=== PATIENT | female | born 1945 | race Caucasian/White ===

== ENCOUNTER 2024-05-29 14:28 | Emergency (ER) | payer BC ==
[2024-05-29 14:35] VITALS: TEMP 99.1
[2024-05-29 15:06] LABS: Anisocytosis Slight; HCT 27.3 % (34.0-46.0); HGB 9.1 gm/dL (11.4-16.0); Hypochromasia Slight; MCH 39.7 pg (25.0-35.0); MCHC 33.2 g/dL (31.0-37.0); MCV 119.6 fL (80.0-100.0); Macrocytosis Marked; Mean Platelet Volume 7.9; Platelet Count 228 k/uL (150-450); Poikilocytosis Slight; RBC 2.28 m/uL (3.80-5.40); RDW 17.9 % (11.5-15.5)
[2024-05-29 15:12] LABS: WBC 1.4 k/uL (3.8-10.6)
[2024-05-29 15:24] LABS: ALT 15 U/L (4-34); AST 36 U/L (14-36); African American GFR (CKD) 46 (>60 ml/min/1.73 sqM); Albumin 3.4 g/dL (3.5-5.0); Alkaline Phosphatase 81 U/L (38-126); Anion Gap 7 mmol/L; Blood Urea Nitrogen 25 mg/dL (7-17); Calcium 8.7 mg/dL (8.4-10.2); Carbon Dioxide 24 mmol/L (22-30); Chloride 108 mmol/L (98-107); Glucose 109 mg/dL (74-99); Non-African American GFR(CKD) 40 (>60 ml/min/1.73 sqM); Sodium 139 mmol/L (137-145); Total Bilirubin 0.8 mg/dL (0.2-1.3); Total Protein 6.6 g/dL (6.3-8.2)
[2024-05-29 15:26] LABS: Potassium 4.6 mmol/L (3.5-5.1)
[2024-05-29 15:30] VITALS: RESP 18
--- NOTE | 2024-05-29 15:37 | ED ---
General Adult HPI - General Chief complaint: Dizziness Stated complaint: dizziness Source: patient, family, RN notes reviewed Mode of arrival: wheelchair Limitations: no limitations - History of Present Illness Initial comments: Patient is a 78-year-old female present to the emergency department with concerns with dizziness. Symptoms started close to 2 weeks ago. Symptoms are intermittent. Patient sometimes feels off balance. Patient does feel spinning sensations. Patient does have some nausea. Patient did have left ear discomfort at the onset of symptoms 2 weeks ago. Patient has been on a antibiotic for a week. This was from primary care physician. Patient did also have some wax removed from her left ear. No ear discomfort at this time. No confusion or speech problem. Patient is planning to see home care provider secondary to anemia which is new. Patient has also been losing weight over the last couple months. - Related Data Previous Rx's Medication Instructions Recorded Meclizine [Antivert] 25 mg PO TID PRN #12 tab 05/29/24 Metoclopramide HCl [Reglan] 10 mg PO Q6HR PRN #15 tablet 05/29/24 Allergies Allergy/AdvReac Type Severity Reaction Status Date / Time No Known Allergies Allergy Verified 05/29/24 14:34 Review of Systems ROS Statement: Those systems with pertinent positive or pertinent negative responses have been documented in the HPI. ROS Other: All systems not noted in ROS Statement are negative. Constitutional: Denies: fever Eyes: Denies: eye pain ENT: Denies: ear pain Respiratory: Denies: cough Cardiovascular: Denies: chest pain Endocrine: Reports: fatigue Gastrointestinal: Reports: nausea Neurological: Reports: as per HPI, vertigo Past Medical History Past Medical History: Hypertension History of Any Multi-Drug Resistant Organisms: None Reported Past Surgical History: No Surgical Hx Reported Past Psychological History: No Psychological Hx Reported Smoking Status: Never smoker Past Alcohol Use History: None Reported Past Drug Use History: None Reported General Exam Limitations: no limitations General appearance: alert, in no apparent distress Head exam: Present: atraumatic Eye exam: Present: normal appearance, PERRL, EOMI ENT exam: Present: TM's normal bilaterally, other (No tenderness over the temporal artery) Neck exam: Present: normal inspection Respiratory exam: Present: normal lung sounds bilaterally Cardiovascular Exam: Present: regular rate, normal rhythm GI/Abdominal exam: Present: soft. Absent: tenderness Extremities exam: Present: normal inspection Neurological exam: Present: alert, oriented X3, CN II-XII intact. Absent: motor sensory deficit Expanded Neurological exam: Present: protecting the airway Speech: Present: fluid speech Cranial nerves: EOM's Intact: Normal, Facial Sensation: Normal Cerebellar function: Finger to Nose: Normal Sensory exam: Upper Extremity Light Touch: Normal, Lower Extremity Light Touch: Normal Motor strength exam: RUE: 5, LUE: 5, RLE: 5, LLE: 5 Eye Response: (4) open spontaneously Motor Response: (6) obeys commands Verbal Response: (5) oriented Psychiatric exam: Present: normal affect, normal mood Skin exam: Present: normal color Course Vital Signs 05/29/24 05/29/24 05/29/24 14:31 15:27 16:59 Temperature 99.1 F Pulse Rate 86 60 76 Respiratory 20 18 18 Rate Blood Pressure 131/60 123/94 138/74 O2 Sat by Pulse 97 96 96 Oximetry EKG Findings - EKG Results: EKG: interpreted by ERMD, sinus rhythm, normal axis, normal QRS, normal ST/T Medical Decision Making - Medical Decision Making Was pt. sent in by a medical professional or institution (, PA, CRISIS INTERVENTION COUNSELOR, urgent care, hospital, or jail...) When possible be specific @ -No Did you speak to anyone other than the patient for history (EMS, parent, family, police, friend...)? What history was obtained from this source @ -Daughter is present helps provide history including patient's plan to see Dr. Nuñez with hematology Did you review nursing and triage notes (agree or disagree)? Why? @ -I reviewed and agree with nursing and triage notes Were old charts reviewed (outside hosp., previous admission, EMS record, old EKG, old radiological studies, urgent care reports/EKG's, jail records)? Report findings @ -Chart reviewed from primary care physician blood work as an outpatient Differential Diagnosis (chest pain, altered mental status, abdominal pain women, abdominal pain men, vaginal bleeding, weakness, fever, dyspnea, syncope, headache, dizziness, GI bleed, back pain, seizure, CVA, palpatations, mental health, musculoskeletal)? @ -Differential Dizziness: Benign paroxysmal positional Vertigo, Meniere's disease, otitis media, acoustic neuroma, vertebrobasilar insufficiency, cerebellar stroke, encephalitis, hypovolemic, arrhythmia, coronary artery syndrome, anemia, this is not meant to be an all-inclusive list EKG interpreted by me (3pts min.). @ -As above X-rays interpreted by me (1pt min.). @ -Chest x-ray shows nonspecific increased interstitial changes CT interpreted by me (1pt min.). @ -CT brain without acute intracranial abnormality U/S interpreted by me (1pt. min.). @ -None done What testing was considered but not performed or refused? (CT, X-rays, U/S, labs)? Why? @ -None What meds were considered but not given or refused? Why? @ -None Did you discuss the management of the patient with other professionals (professionals i.e. , PA, CRISIS INTERVENTION COUNSELOR, lab, RT, psych nurse, social director, traverse rod assembler, teacher, youth officer, rifle case repairer)? Give summary @ -No Was smoking cessation discussed for >3mins.? @ -No Was critical care preformed (if so, how long)? @ -No Were there social determinants of health that impacted care today? How? (Homelessness, low income, unemployed, alcoholism, drug addiction, transportation, low edu. Level, literacy, decrease access to med. care, [place] [facility], rehab)? @ -No Was there de-escalation of care discussed even if they declined (Discuss DNR or withdrawal of care, Hospice)? DNR status @ -No What co-morbidities impacted this encounter? (DM, HTN, Smoking, COPD, CAD, Cancer, CVA, ARF, Chemo, Hep., AIDS, mental health diagnosis, sleep apnea, morbid obesity)? @ -None Was patient admitted / discharged? Hospital course, mention meds given and route, prescriptions, significant lab abnormalities, going to OR and other pertinent info. @ -Patient presents with vertigo type symptoms. No abnormality on exam. CT scan unremarkable for acute findings. Patient symptom-free following medications. Patient does have worsening of weight and red cell counts. Patient does have an appointment already with hematology however they advised to have this done within the next several days. Patient and family are updated on results and need for close follow-up. Undiagnosed new problem with uncertain prognosis? @ -No Drug Therapy requiring intensive monitoring for toxicity (Heparin, Nitro, Insulin, Cardizem)? @ -No Were any procedures done? @ -No Diagnosis/symptom? @ -Vertigo Acute, or Chronic, or Acute on Chronic? @ -Acute Uncomplicated (without systemic symptoms) or Complicated (systemic symptoms)? @ -Complicated with anemia and leukopenia Side effects of treatment? @ -No Exacerbation, Progression, or Severe Exacerbation? @ -No Poses a threat to life or bodily function? How? (Chest pain, [place], [place], pneumonia, PE, COPD, DKA, ARF, appy, cholecystitis, CVA, Diverticulitis, Homicidal, Suicidal, threat to staff... and all critical care pts) @ -No - Lab Data Result diagrams: 05/29/24 14:48 05/29/24 14:48 Lab Results 05/29/24 05/29/24 Range/Units 14:48 14:48 WBC 1.4 L* (3.8-10.6) k/uL RBC 2.28 L (3.80-5.40) m/uL Hgb 9.1 L (11.4-16.0) gm/dL Hct 27.3 L (34.0-46.0) % MCV 119.6 H (80.0-100.0) fL MCH 39.7 H (25.0-35.0) pg MCHC 33.2 (31.0-37.0) g/dL RDW 17.9 H (11.5-15.5) % Plt Count 228 (150-450) k/uL MPV 7.9 Neutrophils % (Manual) 41 % Lymphocytes % (Manual) 49 % Monocytes % (Manual) 4 % Eosinophils % (Manual) 6 % Neutrophils # (Manual) 0.57 L (1.3-7.7) k/uL Lymphocytes # (Manual) 0.69 L (1.0-4.8) k/uL Monocytes # (Manual) 0.06 (0-1.0) k/uL Eosinophils # (Manual) 0.08 (0-0.7) k/uL Nucleated RBCs 0 (0-0) /100 WBC Manual Slide Review Performed Large Platelets Present Polychromasia Present Hypochromasia Slight Poikilocytosis Slight Anisocytosis Slight Macrocytosis Marked A Sodium 139 (137-145) mmol/L Potassium 4.6 (3.5-5.1) mmol/L Chloride 108 H (98-107) mmol/L Carbon Dioxide 24 (22-30) mmol/L Anion Gap 7 mmol/L BUN 25 H (7-17) mg/dL Creatinine 1.30 H (0.52-1.04) mg/dL Est GFR (CKD-EPI)AfAm 46 (>60 ml/min/1.73 sqM) Est GFR (CKD-EPI)NonAf 40 (>60 ml/min/1.73 sqM) Glucose 109 H (74-99) mg/dL Calcium 8.7 (8.4-10.2) mg/dL Total Bilirubin 0.8 (0.2-1.3) mg/dL AST 36 (14-36) U/L ALT 15 (4-34) U/L Alkaline Phosphatase 81 (38-126) U/L Total Protein 6.6 (6.3-8.2) g/dL Albumin 3.4 L (3.5-5.0) g/dL Disposition Clinical Impression: Vertigo Disposition: HOME SELF-CARE Condition: Stable Instructions (If sedation given, give patient instructions): Dizziness (ED) Additional Instructions: Please do follow-up with primary care physician and hematology/oncology in the next couple of days for recheck. Cail-ndt-uixrlyr Antivert as needed. Prescription has been sent to pharmacy. Return for fever, weakness, confusion, increased dizziness, worsening symptoms or any other concerns. Prescriptions: Meclizine [Antivert] 25 mg PO TID PRN #12 tab PRN Reason: dizziness Metoclopramide HCl [Reglan] 10 mg PO Q6HR PRN #15 tablet PRN Reason: Nausea Is patient prescribed a controlled substance at d/c from ED?: No Referrals: Lyndsey Glasgow MD [Primary Care Provider] - 1-2 days Vic Licona MD [STAFF PHYSICIAN] - 1-2 days Time of Disposition: 17:35
[2024-05-29] MEDS: MECLIZINE 12.5 MG TAB PO STA (15:51)
[2024-05-29] MEDS: METOCLOPRAMIDE 5 MG/ML 2 ML VIAL IVP STA (15:52)
--- NOTE | 2024-05-29 16:47 | XR ---
EXAMINATION TYPE: XR chest 2V DATE OF EXAM: 05/29/2024 4:38 PM COMPARISON: None CLINICAL INDICATION: Female, 78 years old with history of vertigo, wt loss; H TECHNIQUE: XR chest 2V Frontal and lateral views of the chest. FINDINGS: Lungs/Pleura: Prominent interstitial lung markings are seen scattered throughout the lungs with elyssa ening of the diaphragm and increased lucency of the lung apices. No evidence of focal consolidation, pneumothorax or pleural effusion. Pulmonary vascularity: Pulmonary vascular congestion. Heart/mediastinum: Cardiomediastinal silhouette is enlarged. Musculoskeletal: No acute osseous pathology. IMPRESSION: Cardiomegaly and mild pulmonary vascular congestion. Correlate with BNP for congestive heart failure. [facility], , 05/29/2024 4:44 PM
[2024-05-29 16:48] LABS: Eosinophils # (M) 0.08 k/uL (0-0.7); Lymphocytes # (M) 0.69 k/uL (1.0-4.8); Monocytes # (M) 0.06 k/uL (0-1.0); Neutrophils # (M) 0.57 k/uL (1.3-7.7); Neutrophils % (M) 41 %; Nucleated Red Blood Cells 0 /100 WBC (0-0); Total Cells Counted 100
[2024-05-29 16:49] LABS: Large Platelets Present; Polychromasia Present
[2024-05-29 17:01] VITALS: BP 138/74; PULSE 76
--- NOTE | 2024-05-29 17:05 | CT ---
EXAMINATION TYPE: CT brain wo con DATE OF EXAM: 05/29/2024 4:49 PM COMPARISON: None. CLINICAL INDICATION: Female, 78 years old with history of vertigo, vertigo and dizziness episodes x2 weeks TECHNIQUE: Brain: Axial CT images of the brain were obtained with coronal and sagittal reformats created and rev iewed. Contrast used: None. Oral contrast used: None. CT DLP: 1139.6 mGycm, Automated exposure control for dose reduction was used. FINDINGS: Brain: Extra-axial spaces: No abnormal extra-axial fluid collections. Ventricular system: Within normal limits Cerebral parenchyma: Hypodense areas within the bilateral thalami and bilateral basal gangli. No acut e intraparenchymal hemorrhage or mass effect. The tay-white junction is well differentiated. Cerebellum: Unremarkable. Mass effect: No evidence of midline shift. Intracranial vasculature: Atherosclerotic calcifications of the intracranial vessels. Soft tissues: Normal. Calvarium/osseous structures: No depressed skull fracture. Paranasal sinuses and mastoid air cells: Mild scattered paranasal sinus disease. Visualized orbits: Orbital contents are intact. IMPRESSION: 1. No acute intracranial process. 2. Hypodense foci in the bilateral thalami and bilateral basal ganglia further evaluation MRI should be considered throughout lacunar infarcts. [facility], , 05/29/2024 5:02 PM
--- NOTE | 2024-05-29 17:14 | CT ---
EXAMINATION TYPE: CT angio head neck DATE OF EXAM: 05/29/2024 4:53 PM COMPARISON: CT head. CLINICAL INDICATION: Female, 78 years old with history of vertigo; PHH, vertigo and dizziness episode s x2 weeks TECHNIQUE: Axially acquired helical CT angiogram of the head and neck was obtained with contrast. Axi al images are supplemented with 3D reconstructions and MIP images which were post-processed at an in dependent workstation. NASCET criteria used. Contrast used:65ml mL of Isovue 370 with IV Contrast, Oral contrast used: None. CT DLP: 359.3 mGycm, Automated exposure control for dose reduction was used. FINDINGS: CTA HEAD: No evidence of acute intracranial hemorrhage, mass effect, or midline shift. The ventricles, sulci, a nd cisterns are unremarkable. r bilateral scrotal calcified lesion possibly calcified meningioma juvenal uring up to 8 x 3 mm. Vertebral arteries: The vertebral arteries are patent. Vertebral artery dominance: Codominant Basilar artery: The basilar artery is intact. The basilar artery bifurcation is normal. Internal Carotid arteries: The cervical, petrous, cavernous and supraclinoid segments are normal. RADHA: Patent with no evidence of aneurysm. ACOM: Present without evidence of aneurysm. MCA: Patent with no evidence of aneurysm. INSPECTOR TYPE: Patent with no evidence of aneurysm. PCOM: Hypoplastic bilaterally. Dural sinuses: Patent. CTA NECK: Right Carotid System: The common carotid artery and external carotid artery are patent. The carotid bifurcation demonstrate s no evidence of hemodynamically significant stenosis. The remaining portions of the internal carotid artery demonstrate normal size without significant narrowing. Left Carotid System: The common carotid artery and external carotid artery are patent. The carotid bifurcation demonstrate s no evidence of hemodynamically significant stenosis. The remaining portions of the internal carotid artery demonstrate normal size without significant narrowing. Vertebral arteries are patent without evidence hemodynamically significant stenosis. There is a three-vessel aortic arch. The origins of the great vessels are patent. No evidence of hemo dynamically significant stenosis. Upper thorax: centrilobular and paraseptal emphysema changes. IMPRESSION: No evidence of dissection of the cervical internal carotid arteries or vertebral arteries. No any evidence of significant stenosis at the carotid bifurcations. No evidence of intracranial high-grade stenosis or intracranial aneurysm. Ctwd-by-heiddgjg emphysema. [facility], , 05/29/2024 5:12 PM
== END 2024-05-29 18:27 | disposition home or self-care (01) ==
LOC: EC 14:28
DX: R42 Dizziness and giddiness (principal)
CPT/HCPCS: 36415; 93005; 80053; 85025; 71046; 70496; 70450; 70498; 99284; 96374; J2765; Q9967

== ENCOUNTER 2024-07-03 12:47 | Day surgery (SDC) | payer MEDICARE ==
[2024-06-29 15:25] VITALS: BMI 22.3
[2024-07-03 14:18] VITALS: TEMP 96.7
[2024-07-03] MEDS: IV FLUID CONTINUATION 1,000 ML IV ONE (14:30)
[2024-07-03] MEDS: LACTATED RINGERS 1,000 ML IV SCH (14:30)
[2024-07-03] MEDS ORDERED: fentaNYL (PF) 50 MCG/ML 2 ML AMP ONE (14:34)
--- NOTE | 2024-07-03 14:46 | P.PCN ---
Date of Procedure: 07/03/24 Procedure(s) Performed: Preoperative diagnosis: Demyelinating disease Post operative diagnoses: Debilitating disease Procedure= lumbar puncture Anesthesia= moderate sedation with fentanyl 100 g, local infiltration with lidocaine 1% 3 mL. Sedation start time :14:34 Sedation end time :14:43 Condition: stable Complication: none. Description of the procedure procedure risk and benefits discussed with the patient and family, consent signed. Patient and the procedure area placed in sitting position, back prepped with chlorhexidine 3 times been local infiltration of the skin and subcutaneous tissue with lidocaine 1% 3 mL for skin and subcu interstitial frustrations at L4 5 levels then 23-gauge Quincke-type needle advanced slowly at L4- 5 interlaminar space there was positive cerebrospinal fluid which was clear, no heme, no paresthesia ,total of 9 ML of clear cerebrospinal fluid collected in 4 different tubes 2-2-1/2 mL in each, then the needle removed and a Band-Aid applied and patient tolerated the procedure well without any complications.
[2024-07-03] MEDS: LACTATED RINGERS 1,000 ML IV ONE (14:55)
[2024-07-03 14:58] LABS: ALT 15 U/L (4-34); AST 25 U/L (14-36); Glucose 90 mg/dL (74-99)
[2024-07-03 15:18] LABS: Appearance,CSF Clear
[2024-07-03 15:20] LABS: CSF Tube Number 4; CSF Tube Volume 2.5
[2024-07-03 15:39] LABS: Glucose,CSF 49 mg/dL (40-70); Total Protein,CSF 43 mg/dL (12-60)
[2024-07-03 15:51] VITALS: BP 148/71; PULSE 67; RESP 18
[2024-07-03 16:42] LABS: Nucleated Cells, CSF 1 u/L (0-5); Red Blood Cell,CSF 4 u/L (0-10)
[2024-07-03 21:57] LABS: Anti-DNA, DS unit <1.0 IU/mL; Anti-Smith Ab Interp Negative (Negative); DNA Double-Stranded Negative (Negative)
[2024-07-03 23:20] LABS: Rheumatoid Factor, Qnt 28 IU/mL (0-15)
[2024-07-04 14:21] LABS: APTT 32 Sec(s) (<43); Dilute Russell Viper Venom 34 Sec(s) (<44)
[2024-07-06 09:50] LABS: VDRL, Qualitative CSF Nonreactive (Nonreactive)
== END 2024-07-03 15:56 | disposition home or self-care (01) ==
LOC: ORPAIN 12:47
PROVIDERS: ATTEND Specialist
DX: G37.9 Demyelinating disease of central nervous system, unspecified (principal)
CPT/HCPCS: 86592; 86235 ×3; 84157; 82945; 82040; 82042; 82784; 83916; 82947; 84436; 84443; 84450; 84460; 85730; 86431; 85613; 89050; 86618; 86038; 86039; 86225; 62270; J3010; 88108

== ENCOUNTER → 2024-07-09 | Outpatient (CLI) | payer MEDICARE ==
--- NOTE | 2024-07-09 14:33 | MR ---
EXAMINATION TYPE: MR brain wo/w con DATE OF EXAM: 07/09/2024 1:43 PM COMPARISON: 05/29/2024. 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 The patient was then given intravenous contrast and multi planar, T1 fat-saturation images wer e obtained. IV Contrast: 5 mL Gadobutrol FINDINGS: Mild cerebral atrophy with proportional dilation of ventricular system. Bilateral chronic injuries o f the frontal lobe schneider radiata with surrounding gliosis present. Diffusion-weighted imaging shows no evidence of restricted diffusion to suggest acute/subacute infarct. Intracranial arterial flow voi ds are maintained. Midline structures show no abnormality. Scattered foci of high T2 signal intensity are seen within the periventricular white matter. The susceptibility weighted images demonstrate mul tiple foci of susceptibility artifact suggestive of microhemorrhage. After administration of gadolini um, no abnormal enhancement is seen. The bone marrow signal is within normal limits. Paranasal sinuses and mastoid air cells: Bilateral maxillary sinus mucosal retention cysts measuring up to 8 mm on the right and 10 mm on the left. Visualized orbits: Orbital contents are intact. IMPRESSION: 1. No evidence of intracranial mass, acute/subacute infarct, or abnormal enhancement. 2. Nonspecific white matter changes, likely related to small vessel ischemic disease. 3. Remote injuries to the bilateral schneider radiata of the frontal lobe. [facility], , 07/09/2024 2:30 PM
== END | disposition home or self-care (01) ==
LOC: RADMRIMAIN 12:52
PROVIDERS: ATTEND Psychiatry & Neurology Neurology
DX: G61.9 Inflammatory polyneuropathy, unspecified (principal); M62.81 Muscle weakness (generalized); R90.82 White matter disease, unspecified; Z86.73 Personal history of transient ischemic attack (TIA), and cerebral infarction without residual deficits
CPT/HCPCS: 70553; A9585

== ENCOUNTER 2024-08-01 06:35 | Day surgery (SDC) | payer MEDICARE ==
[2024-07-31 10:20] VITALS: BMI 23.0
[~2024-08-01 06:35] MED LIST: LACTATED RINGERS 1,000 ML IV SCH
[2024-08-01 07:08] VITALS: RESP 16; TEMP 97.5
[2024-08-01] MEDS: IV FLUID CONTINUATION 1,000 ML IV ONE (07:20)
[2024-08-01] MEDS ORDERED: PROPOFOL 10 MG/ML 20 ML VIAL IV ONE (07:21)
[2024-08-01] MEDS ORDERED: LIDOCAINE 1% INJ 10MG/ML (20 ML MDV) ONE (07:21)
[2024-08-01 07:24] LABS: Glucose,Whole Blood 94 mg/dL (70-110)
--- NOTE | 2024-08-01 08:12 | P.PCN ---
Date of Procedure: 08/01/24 Procedure(s) Performed: Brief history: Patient is a pleasant 78-year-old white female scheduled for an elective upper endoscopy as well as colonoscopy as a part of evaluation of iron deficiency anemia Procedure performed: Esophagogastroduodenoscopy with biopsy Colonoscopy with snare polypectomy Preoperative diagnosis: Iron deficiency anemia Anesthesia: MAC Procedure: After informed consent was obtained from the patient was brought into the endoscopy unit and IV sedation was administered by anesthesia under continuous monitoring. Initially upper endoscopy was done. The Olympus GF 160 video endoscope was inserted inserted into the mouth and esophagus intubated without any difficulty and was gradually advanced into the stomach and duodenum and carefully examined. The bulb and second part of the duodenum appeared normal. The scope was then withdrawn into the stomach adequately insufflated with air and upon careful examination the antrum had mild gastritis and biopsies were done from this area. Mucosa of the luis m, cardia and fundus appeared normal. The scope was then withdrawn into the esophagus. Small hiatal hernia noted. The GE junction was located at 40 cm to the incisors. It appeared regular with no erythema erosions or ulcerations. Rest of the esophagus appeared normal. P atient tolerated the procedure well. At this time the patient continued to remain sedation. Initial digital rectal examination was normal. Olympus CF 160 video colonoscope was then inserted into the rectum and gradually advanced to the cecum without any difficulty. Careful examination was performed as the scope was gradually being withdrawn. The prep was excellent. The cecum, appeared normal. Descending colon there were 3 polyps measuring 5 mm and 1 cm in size removed by snare polypectomy. Rest of the ascending colon, transverse colon, descending colon, appeared normal. The sigmoid colon there were 2 large polyps measuring 5 cm and 4 cm in size which were thick pedunculated which were removed by piecemeal snare polypectomy and complete polypectomy was accomplished. Sigmoid colon and rectum appeared normal. Retroflexion was performed in the rectum and no lesions were noted. Patient tolerated the procedure well. Impression: 1. Upper endoscopy revealed small hiatal hernia and mild in the distal 2. Colonoscopy revealed: 5 mm, 1 cm x 2 ascending colon polyp status post polypectomy 3 cm and 4 cm thick pedunculated sigmoid colon polyps at 30 cm from the anal verge status post piecemeal snare polypectomy and almost complete polypectomy accomplished Recommendations: Findings of this examination were discussed with the patient as well as her family. She was advised to follow-up with the biopsy results. She will be seen in the office in 1 week. Based on the biopsy results we will plan on repeat colonoscopy in 3 months.
[2024-08-01 08:48] VITALS: BP 163/83; PULSE 78
== END 2024-08-01 09:02 | disposition home or self-care (01) ==
LOC: ORWHC2ENDO 06:35
PROVIDERS: ATTEND Internal Medicine Gastroenterology
DX: K29.50 Unspecified chronic gastritis without bleeding (principal); D12.2 Benign neoplasm of ascending colon; D12.5 Benign neoplasm of sigmoid colon; K44.9 Diaphragmatic hernia without obstruction or gangrene; D50.9 Iron deficiency anemia, unspecified; I10 Essential (primary) hypertension; Z79.899 Other long term (current) drug therapy
CPT/HCPCS: 88305; 45385; 43239; J2003; J2704

== ENCOUNTER → 2024-08-25 | Outpatient (CLI) | payer MEDICARE ==
--- NOTE | 2024-08-25 16:59 | MR ---
EXAMINATION TYPE: MR cspine/tspine wo/w con DATE OF EXAM: 08/25/2024 3:53 PM COMPARISON: 05/29/2024.. CLINICAL INDICATION: Female, 78 years old with history of G61.9 inflammatory poly neuropathy; PHH, we akness and pain TECHNIQUE: Multi planar, multi sequence imaging was performed utilizing: T1-weighted, T2-weighted, a nd turbo inversion recovery imaging of the cervical and thoracic spine. IV Contrast: 6ml mL Gadobutrol (None, if empty) FINDINGS: CERVICAL: Alignment: The cervical vertebral bodies have preserved heights. Alignment is within normal limits gi rodger patient positioning. Bones: Scattered Modic endplate changes with osteophytes and disc space narrowing. Multilevel degener ative disc disease is noted and most pronounced at the C5-C7 vertebral levels. No abnormal postcontra st enhancement. Cord: The spinal cord is unremarkable with regards to their signal intensity and morphology. No abnor mal postcontrast enhancement. Discs: Multilevel disc desiccation is present. C2-C3: No significant disc pathology. The spinal canal is patent. No neural foraminal stenosis. C3-C4: No significant disc pathology. The spinal canal is patent. Bilateral facet and uncovertebral joint arthropathy are present with moderate bilateral neural foraminal stenosis. C4-C5: No significant disc pathology. The spinal canal is patent. Bilateral facet and uncovertebral joint arthropathy are present with moderate left and mild to moderate right neural foraminal stenosis . C5-C6: A disc osteophyte complex is present with moderate spinal canal stenosis. Bilateral facet and uncovertebral joint arthropathy are present with severe bilateral neural foraminal stenosis. C6-C7: A disc osteophyte complex is present with moderate spinal canal stenosis. Bilateral facet and uncovertebral joint arthropathy are present with severe bilateral neural foraminal stenosis. C7-T1: No significant disc pathology. The spinal canal is patent. No neural foraminal stenosis. THORACIC: T9-T10 right central osteophyte which mildly narrows the ventral subarachnoid space. Series 02/29/2000 image 13. No evidence significant spinal canal or neural foraminal stenosis. Spinal cord is within normal limits there is increased kyphotic alignment. No abnormal postcontrast enhancement. Other: None. IMPRESSION: 1. No definitive evidence of disc herniation or significant spinal canal stenosis. No abnormal postc ontrast enhancement. 2. 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 3. Moderate scattered Disc degeneration with associated osteoarthritic changes. [facility], , 08/25/2024 4:57 PM
== END | disposition home or self-care (01) ==
LOC: RADMRIMAIN 14:18
PROVIDERS: ATTEND Psychiatry & Neurology Neurology
DX: G61.9 Inflammatory polyneuropathy, unspecified (principal); M62.81 Muscle weakness (generalized); M47.812 Spondylosis without myelopathy or radiculopathy, cervical region; M48.02 Spinal stenosis, cervical region; M50.322 Other cervical disc degeneration at C5-C6 level; M99.71 Connective tissue and disc stenosis of intervertebral foramina of cervical region
CPT/HCPCS: 72156; 72157; A9585